=== PATIENT | male | born 1990 | race Caucasian/White ===

== ENCOUNTER 2016-09-08 23:15 | Emergency (ER) | payer MEDICAID ==
--- NOTE | 2016-09-09 00:14 | NUR ---
Patient left without being seen.
== END 2016-09-09 00:14 | disposition left against medical advice (07) ==
LOC: SED 23:15
DX: G43.909 Migraine, unspecified, not intractable, without status migrainosus (principal); Z53.21 Procedure and treatment not carried out due to patient leaving prior to being seen by health care provider

== ENCOUNTER 2020-01-18 00:39 | Emergency (ER) | payer MEDICAID, SELFPAY ==
[~2020-01-18] VITALS: Ht 175.3 cm; Wt 77.1 kg
[2020-01-18 00:45] VITALS: BP_SYST 134
[2020-01-18] MEDS: KETOROLAC TROMETHAMINE 30 MG VIAL IM ONE (01:42)
[2020-01-18 01:44] VITALS: BP_SYST 129
== END 2020-01-18 01:44 | disposition home or self-care (01) ==
LOC: SED 00:39
DX: R07.89 Other chest pain (principal); U07.1 COVID-19
CPT/HCPCS: 71045; 93005; 96372; 99283; J1885

== ENCOUNTER 2023-01-09 23:39 | Emergency (ER) | payer MEDICAID, OTHER ==
[~2023-01-09] VITALS: Ht 172.7 cm; Wt 81.6 kg
[2023-01-10] VITALS: BP_SYST 140; PULSE 96; RESP 18; TEMP 98.4; O2SAT 97
--- NOTE | 2023-01-10 01:48 | NUR ---
PATIENT CALLED FOR ROOM PLACEMENT. PATIENT LEFT WITHOUT BEING SEEN
== END 2023-01-10 01:48 | disposition left against medical advice (07) ==
LOC: SED 23:39
DX: R20.0 Anesthesia of skin (principal); Z53.21 Procedure and treatment not carried out due to patient leaving prior to being seen by health care provider
CPT/HCPCS: 99281